=== PATIENT | female | born 1950 | race Caucasian/White ===

== ENCOUNTER 2017-04-11 10:25 | Outpatient (CLI) | payer BC | END 2017-04-11 10:26 | LOC: LABRHC 10:25 | PROVIDERS: ATTEND Physician Assistant | DX: R30.0 Dysuria (principal) | CPT/HCPCS: 87086; 87186 ==

== ENCOUNTER 2017-05-14 11:20 | Outpatient (CLI) | payer BC | END 2017-05-14 11:21 | LOC: LAB 11:20 | PROVIDERS: ATTEND Family Medicine | DX: E11.9 Type 2 diabetes mellitus without complications (principal) | CPT/HCPCS: 36415; 83036 ==

== ENCOUNTER 2017-11-21 11:16 | Outpatient (CLI) | payer OTHER ==
[2017-11-21 11:55] LABS: eGFR (African) > 60; eGFR (Non-African) > 60
== END 2017-11-21 11:17 ==
LOC: LAB 11:16
PROVIDERS: ATTEND Family Medicine
DX: E11.9 Type 2 diabetes mellitus without complications (principal)
CPT/HCPCS: 36415; 80053; 80061; 83036

== ENCOUNTER 2019-05-05 14:19 | Outpatient (CLI) | payer OTHER ==
[2019-05-05 14:59] LABS: eGFR (Non-African) > 60
[2019-05-05 15:00] LABS: HDL 43 mg/dL (>40)
== END 2019-05-05 14:21 ==
LOC: LAB 14:19
PROVIDERS: ATTEND Family Medicine
DX: E11.9 Type 2 diabetes mellitus without complications (principal)
CPT/HCPCS: 36415; 80053; 80061; 82043; 83036

== ENCOUNTER 2019-08-25 13:44 | Outpatient (CLI) | payer OTHER | END 2019-08-25 13:49 | LOC: LAB 13:44 | PROVIDERS: ATTEND Family Medicine | DX: E11.9 Type 2 diabetes mellitus without complications (principal) | CPT/HCPCS: 36415; 83036 ==